=== PATIENT | female | born 1990 | race Two or more races ===

== ENCOUNTER 2016-07-04 19:28 | Emergency (ER) | payer MEDICAID, OTHER | END 2016-07-04 22:06 | disposition home or self-care (01) | LOC: ED 19:28 | DX: Z53.21 Procedure and treatment not carried out due to patient leaving prior to being seen by health care provider (principal) ==

== ENCOUNTER 2016-07-16 14:35 | Emergency (ER) | payer OTHER ==
[2016-07-16] MEDS ORDERED: PREDNISONE 10 MG TABLET ONE (17:39)
== END 2016-07-16 17:53 | disposition home or self-care (01) ==
LOC: ED 14:35
DX: L50.9 Urticaria, unspecified (principal); E66.9 Obesity, unspecified; Z87.891 Personal history of nicotine dependence; Z79.899 Other long term (current) drug therapy
CPT/HCPCS: 99283 ×2; J7512